=== PATIENT | female | born 1955 | race Caucasian/White ===

== ENCOUNTER → 2024-06-04 | Outpatient (CLI) | payer MEDICARE, SELFPAY ==
--- NOTE | 2024-06-04 12:53 | US_ITS ---
EXAM: US Retroperitoneal Limited, Renal CLINICAL INDICATION: TECHNIQUE: Real-time limited ultrasound of the retroperitoneum with image documentation. COMPARISON: No relevant prior studies available. FINDINGS: RIGHT KIDNEY: Unremarkable. No stones. No hydronephrosis. The right kidney measures 12.3 x 6.4 x 5.6 cm. LEFT KIDNEY: Unremarkable. No stones. No hydronephrosis. The left kidney measures 11.9 x 5.7 x 6.1 cm. BLADDER: Urinary bladder appears normal. Prevoid volume 85 cc. US/Kidney and Bladder IMPRESSION: No acute findings in the retroperitoneum. Reading [facility] [place]
== END | disposition home or self-care (01) ==
PROVIDERS: PCP Nurse Practitioner Family; Referring Provider Urology; Visit Provider Urology
DX: N39.0 Urinary tract infection, site not specified (principal)
CPT/HCPCS: 76770